=== PATIENT | female | born 1955 | race Caucasian/White ===

== ENCOUNTER → 2020-08-05 11:18 | Outpatient (CLI) | payer BC, SELFPAY | PROVIDERS: PCP Nurse Practitioner Family; Visit Provider Nurse Practitioner Family | DX: Z01.818 Encounter for other preprocedural examination (principal) | CPT/HCPCS: U0003 ==

== ENCOUNTER → 2021-01-15 08:57 | Outpatient (CLI) | payer MEDICARE, SELFPAY ==
[2021-01-15 11:49] LABS: Alanine Aminotransferase 34 U/L (12-78); Albumin Level 4.6 g/dl (3.5-5.0); Albumin/Globulin Ratio 1.6 (1.1-1.8); Alkaline Phosphatase 85 U/L (38-126); Anion Gap 9.8 mEq/L (5-15); Aspartate Amino Transferase 34 U/L (14-36); Bilirubin,Total 0.4 mg/dl (0.2-1.3); Blood Urea Nitrogen 21 mg/dl (7-17); Calcium 9.8 mg/dl (8.4-10.2); Carbon Dioxide 31 mmol/L (22.0-30.0); Chloride 104 mmol/L (98-107); Chol/HDL Ratio 2.9 (1-3.5); Cholesterol 176 mg/dl (140-200); Estimated Glomerular Filt Rate 100 ml/min (>60); GFR (African American) 121 ML/MIN (>60); Globulin 2.9 g/dL (1.3-3.2); Glucose 109 mg/dl (74-100); HDL Cholesterol 60 mg/dl (40-60); Potassium 4.8 mmoL/L (3.5-5.1); Sodium 140 mmol/L (136-145); Total Protein,Serum 7.5 g/dl (6.3-8.2); Triglycerides 185 mg/dl (30-150); VLDL Cholesterol 37 mg/dL (0-40)
[2021-01-15 12:00] LABS: Direct LDL Cholesterol 63.99 mg/dL (100-129)
[2021-01-15 12:19] LABS: Thyroid Stimulating Hormone 3.19 uIU/mL (0.465-4.68)
== END ==
PROVIDERS: Visit Provider Nurse Practitioner Family
DX: I10 Essential (primary) hypertension (principal); E78.00 Pure hypercholesterolemia, unspecified; E03.9 Hypothyroidism, unspecified
CPT/HCPCS: 36415; 80053; 80061; 84443

== ENCOUNTER 2022-02-22 08:00 | Outpatient (RCR) | payer MEDICARE, SELFPAY ==
--- NOTE | 2022-01-28 09:53 | HMH.OTOPEV ---
OT Inpatient Evaluation Rehab OT Outpatient Eval Start: 01/28/22 09:44 Freq: Status: Active Protocol: Document 01/28/22 09:45 RMDINO (Rec: 01/28/22 09:53 [id number] E-signed By Ivania Nelson, OT Outpatient Therapy Subjective History Subjective History Pt is a 66 year old female who reports to therapy for initial evaluation to left shoulder. Pt reports ~3 months ago she fell down her bottom step hit her left shoulder. However, initially after the fall she did not experience any pain. Approximately one month after her fall, her left shoulder began hurting. She expresses her pain as a dull ache in the anterior aspect of left shoulder that radiates across the clavicle/chest and down into the bicep. No imaging of the shoulder has been completed at this time. Pt does demonstrate with a slight decline in AROM and strength at left shoulder. Pt will continue to be seen twice a week in order to address left shoulder deficits. Chief Complaint Pain,Stiff,Weakness Symptom Type Ache,Dull Symptoms Relieved By Rest/Positioning,Heat Symptoms Aggravated By Physical Activity,Lifting Prior Functional Limitations None Current Functional Limitations Reaching,Lifting,Housework, Dressing,Sleeping,Recreation Activity Symptom Description Intermittent,Activity Dependent Level of pain today (0-10) 4 Pain scale - at its best (0-10) 0 Pain scale - at its worst (0-10) 8 Shoulder/Elbow Eval Shoulder Objective Measurements Shoulder ROM Left Shoulder ROM Limitations Pain Shoulder Abduction Active Range of 145 degrees Motion (degrees) Shoulder Flexion Active Range of Motion 135 degrees (degrees) Query Text: Shoulder External Rotation Active Range 85 degrees of Motion (degrees) Shoulder Internal Rotation Active Range 50 degrees of Motion (degrees) pain with active ROM shoulder exam left standard pain with p
== END 2022-02-22 08:05 | disposition home or self-care (01) ==
LOC: OT 08:00
PROVIDERS: PCP Nurse Practitioner Family; Visit Provider Nurse Practitioner Family
DX: M25.512 Pain in left shoulder (principal)
CPT/HCPCS: 97010; 97014; 97110; 97140; 97166; G0283

== ENCOUNTER 2022-08-31 11:05 | Emergency (ER) | payer MEDICARE, SELFPAY ==
[2022-08-31 11:05] VITALS: BP 138/79; PULSE 101; RESP 19; TEMP 37.2; O2SAT 98; BMI 25.5
--- NOTE | 2022-08-31 11:27 | EXP.UTC ---
Discharge Plan Disposition Patient Disposition: Home, Self-Care Condition: Good Prescriptions Prescriptions: New ofloxacin 0.3 % drops See Rx Instructions .ROUTE .COMPLEX Qty: 10 0RF Rx Instructions: put 1 drp into florencia eye(s) every 3 h x 2 days, then 1 drps 4 times/day days 3-7 No Action azithromycin 250 MG tablet 250 mg PO UD DOSE PK Qty: 6 0RF Rx Instructions: Take two (2) tablets today, then one (1) tablet days #2 thru #5 Referrals Follow up/Referrals: Stephanie Vincent APRN [Primary Care Provider] - See instructions Activity Restrictions/Add. Instructions Additional Instructions/Restrictions: eye drops as ordered watch for worsening return follow up with pcp Clinical Impressions Clinical Impression: [place] eye disease of both eyes Instructions Patient Instructions: DI for Conjunctivitis [facility]charge [facility] [place]Jenny [facility] [place] HPI General Stated complaint: Eye redness w/drainage Mode of Arrival: Ambulatory Source of Information: Patient Limitations: No Limitations Time Seen by Provider: 08/31/22 11:27 Description of Symptoms (Recalled from Triage Doc. by RN): florencia eye redness and draiange History of Present Illness Provider Complaint: 66 yr old female presents for florencia redness and drainage. pt states she has to keep wiping out drainage that is building up and this am her eyes were matted together Related Data Previous Rx's Medication Instructions Recorded azithromycin 250 mg tablet 250 mg PO UD DOSE PK #6 tabs 10/05/18 ofloxacin 0.3 % eye drops See Rx Instructions ophthalmic 08/31/22 (eye) .COMPLEX #10 mL Allergies Allergy/AdvReac Type Severity Reaction Status Date / Time Sulfamethoxazole Allergy Unknown Uncoded 03/25/17 14:24 [facility] Disclaimer: The information contained in this section may have been updated after the patient was seen, as this information can be updated by other users. Social History , SELMA) Smoking Status: Never smoker alcohol intake: never current occupational status: employed Travel in the last 8 weeks: None ROS Obtained: Yes All systems reviewed & no additional complaints except as documented Constitutional Constitutional: Reports system reviewed and no additional complaints, except as documented Eyes Eyes: Reports system reviewed and no additional complaints, except as documented, Reports as per HPI, Reports eye discharge and Reports irritation ENT Ears, Nose, Mouth, and Throat: Reports system reviewed and no additional complaints, except as documented and Reports as per HPI Cardiovascular Cardiovascular: Reports system reviewed and no additional complaints, except as documented Respiratory Respiratory: Reports system reviewed and no additional complaints, except as documented Gastrointestinal Gastrointestingal: Reports system reviewed and no additional complaints, except as documented Musculoskeletal Musculoskeletal: Reports system reviewed and no additional complaints, except as documented Integumentary/Breasts Skin/Breast: Reports system reviewed and no additional complaints, except as documented Neurologic Neurologic: Reports system reviewed and no additional complaints, except as documented Endocrine Endocrine: Reports system reviewed and no additional complaints, except as documented Hematologic/Lymphatic Henatologic/Lymphatic: Reports system reviewed and no additional complaints, except as documented Allergic/Immunologic Allergic/Immunologic: Reports system reviewed and no additional complaints, except as documented Physical Exam General General appearance: alert and in no apparent distress Head Head exam: atraumatic, normocephalic and normal inspection Eye Eye exam: Present PERRL, conjunctival redness and discharge ENT ENT exam: Present normal exam, normal oropharynx, mucous membranes moist, TM's normal bilaterally and normal external ear exam Neck Neck
[2022-08-31 11:38] VITALS: BP 138/79; PULSE 101; RESP 19; TEMP 37.2; O2SAT 98
== END 2022-08-31 11:38 | disposition home or self-care (01) ==
PROVIDERS: Emergency Provider Nurse Practitioner Family; PCP Nurse Practitioner Family
DX: H10.023 Other mucopurulent conjunctivitis, bilateral (principal)
CPT/HCPCS: 99204; 99212; G0463

== ENCOUNTER → 2022-09-24 14:55 | Outpatient (CLI) | payer MEDICARE, SELFPAY ==
[2022-09-25 07:50] VITALS: BMI 24.6
== END ==
PROVIDERS: PCP Nurse Practitioner Family; Visit Provider Nurse Practitioner Family
DX: Z71.3 Dietary counseling and surveillance (principal); R73.03 Prediabetes; R73.09 Other abnormal glucose
CPT/HCPCS: 97802

== ENCOUNTER 2023-07-17 08:43 | Outpatient (CLI) | payer MEDICARE, SELFPAY ==
--- OUTSIDE RECORDS SUMMARY | 2023-07-17 08:46 | XMS_ITS ---
Author Name Unknown Address [address] [place] [address] [place] [address] Phone Organization [facility], [facility] Address [address] [place] [address] Phone Care Team Providers Care Soap Slabber Name Role Phone Yenny TORRES, Garrison Burks Unavailable + Plan of Treatment Future Appointments Date Time Location Provi nino Physician Specified 08/04/2023 8:45AM [facility] Richi Argueta PA-C Last Documented On 4 1:58PM ; [facility], [facility] Assessments Includes: Assessments for all patient encounters No Assessments Recorded Medical Equipment - Implanted Devices Includes: Current and historical Devices No Medical Equipment Recorded Medications Administered Includes: Administered Medications in patient's chart No Administered Medications Recorded Results Includes: Results from 07/16/2022 through 07/17/2023 No Results Recorded For Specified Dates History of Present Illness History of Present Illness not supported for this document type No History of Present Illness Recorded Social History No Social History Recorded - Smoking Status Unknown Medical History Includes: Medical History in patient's chart No Medical History Recorded Family History Includes: Family History in patient's chart No Family History Recorded Review of Systems Review of Systems not supported for this document type No Review of Systems Recorded Mental Status No Mental Status Recorded Functional Status No Functional Status Recorded Physical Exam Physical Exam not supported for this document type No Physical Exam Recorded Insurance Includes: Active Insurance Policies Plan Name Member ID Group # Subscriber Relationship Effect prasad Dates 1 - Medicare Part B [facility] [id number] Katlyn Lara Self Clinical Notes Includes: Signed Clinical Notes starting from 03/21/2022 No Clinical Notes Recorded
--- OUTSIDE RECORDS SUMMARY | 2023-07-17 08:46 | XMS_ITS ---
Care Plan - [facility], [facility] Created on: July 17, 2023 Katlyn Lara : 1955 Sex: Female Author Name Unknown Address [address] [place] [address] [place] [address] Phone Organization [facility] , [facility] Address [address] [place] [address] Phone Care Team Providers Care Underground Heavy Equipment Operator Name Role Phone Yenny TORRES, Garrison Burks Unavailable +
[2023-07-17 09:21] LABS: Basophils # 0.1 K/mm3 (0-0.2); Basophils % 0.8 % (0.1-2.0); Eosinophils # 0.1 K/mm3 (0.0-0.4); Eosinophils % 1.6 % (0.1-12.0); Hematocrit 41.4 % (37.0-47.0); Hemoglobin 13.6 g/dL (12.2-16.2); Lymphocytes # 2.5 K/mm3 (0.7-4.5); Lymphocytes % 30.8 % (10-50); Mean Corpuscular HGB Conc 32.7 g/dL (31.8-35.4); Mean Corpuscular Hemoglobin 32.2 pg (27.0-31.2); Mean Corpuscular Volume 98.4 fl (81-99); Mean Platelet Volume 8.4 fl (7.4-10.4); Monocytes # 0.5 K/mm3 (0.1-1.0); Monocytes % 6.3 % (1.7-9.3); Neutrophils # 4.9 K/mm3 (1.8-7.8); Neutrophils % 60.5 % (37.0-80.0); Platelet Count 279 K/mm3 (142-424); Red Blood Count 4.21 M/mm3 (4.20-5.40); Red Cell Distribution Width 13.1 % (11.5-17.5); White Blood Count 8.1 K/mm3 (4.8-10.8)
[2023-07-17 10:51] LABS: Alanine Aminotransferase 31 U/L (12-78); Albumin Level 4.5 g/dl (3.5-5.0); Albumin/Globulin Ratio 1.9 (1.1-1.8); Alkaline Phosphatase 84 U/L (38-126); Anion Gap 9.3 mEq/L (5-15); Aspartate Amino Transferase 32 U/L (14-36); Bilirubin,Total 0.5 mg/dl (0.2-1.3); Blood Urea Nitrogen 24 mg/dl (7-17); Calcium 10.3 mg/dl (8.4-10.2); Carbon Dioxide 30 mmol/L (22.0-30.0); Chloride 105 mmol/L (98-107); Cholesterol 157 mg/dl (140-200); Estimated Glomerular Filt Rate 83 ml/min (>60); GFR (African American) 101 ML/MIN (>60); Globulin 2.4 g/dL (1.3-3.2); Glucose 102 mg/dl (74-100); HDL Cholesterol 52 mg/dl (40-60); Potassium 4.3 mmoL/L (3.5-5.1); Sodium 140 mmol/L (136-145); Total Protein,Serum 6.9 g/dl (6.3-8.2); Triglycerides 148 mg/dl (30-150); VLDL Cholesterol 30 mg/dL (0-40)
[2023-07-17 11:02] LABS: Direct LDL Cholesterol 58.23 mg/dL (100-129)
[2023-07-17 11:17] LABS: Hemoglobin A1C 5.9 % (4.0-6.0)
[2023-07-17 11:22] LABS: Thyroid Stimulating Hormone 0.37 uIU/mL (0.465-4.68)
[2023-07-17 11:57] LABS: Vitamin B12 403 pg/mL (239-931)
[2023-07-17 15:54] LABS: Ferritin 49.2 ng/ml (11.1-264)
[2023-07-18 12:05] LABS: Intact Parathyroid Hormone 43.6 pg/mL (7.5-53.5)
== END 2023-07-17 23:59 | disposition home or self-care (01) ==
LOC: LAB 08:44
PROVIDERS: PCP Nurse Practitioner Family; Visit Provider Nurse Practitioner Family
DX: I10 Essential (primary) hypertension (principal); E78.00 Pure hypercholesterolemia, unspecified; R73.03 Prediabetes; L50.9 Urticaria, unspecified; L60.8 Other nail disorders; E03.9 Hypothyroidism, unspecified
CPT/HCPCS: 36415; 80053; 80061; 82607; 82728; 82746; 83036; 83970; 84443; 85025